=== PATIENT | female | born 2000 | race Two or more races ===

== ENCOUNTER 2023-01-30 06:17 | Emergency (ER) | payer OTHER ==
[~2023-01-30] VITALS: Ht 149.9 cm; Wt 53.0 kg
[2023-01-30 06:33] VITALS: BP 117/71; PULSE 98; RESP 16; O2SAT 96
[2023-01-30 08:16] LABS: COVID19 ANTIGEN SOFIA FIA NEGATIVE (NEGATIVE)
[2023-01-30 08:17] LABS: Rapid Influenza A Negative (Negative); Rapid Influenza B Negative (Negative)
[2023-01-30] MEDS ORDERED: AMOX875T3 PO (08:26)
[2023-01-30] MEDS ORDERED: ACET-1080 PO (08:26)
[2023-01-30] MEDS ORDERED: METH4PAK PO (08:26)
== END 2023-01-30 08:41 | disposition home or self-care (01) ==
LOC: ER 06:17
DX: J01.90 Acute sinusitis, unspecified (principal); Z79.2 Long term (current) use of antibiotics; Z79.899 Other long term (current) drug therapy; Z20.822 Contact with and (suspected) exposure to COVID-19
CPT/HCPCS: 36415; 87426; 87804